=== PATIENT | female | born 1945 | race Caucasian/White ===

== ENCOUNTER 2023-06-28 08:12 | Day surgery (SDC) | payer MEDICARE, SELFPAY ==
[2023-06-28] VITALS (7 sets, daily range): BP systolic 98–117; BP diastolic 58–73; PULSE 60–84; RESP 16–18; TEMP 36.1–36.3; O2SAT 93–98; BMI 28.1
--- NOTE | 2023-06-28 | COLBX_PTH ---
PATIENT: ALESIA LUCAS LOC: EN U#:[id number] AGE/SX: 77/F ROOM: RE06/28/[address]: Dr. Marivel Nj MD : 1945 BED: DIS: 06/28/2023 SPEC #: [id number] RECD: 06/28/23 11:43 STATUS: MARY ELLEN REQ #: [id number] PRADIP: 06/28/23 00:[address]: Marivel Nj DEPT: SURGICAL PATHOLOGY RECD BY: Keshav Jones ENTERED: 06/28/23 13:27 SP TYPE: COLON BX OTHR DR: Dr. Dwayne Acosta, Tissues: Ascending colon Procedures: Surgery Specimen Level IV HEADER OPERATION: Colonoscopy with biopsy PRE-OP DIAGNOSIS: Blood in stool TISSUE SUBMITTED: Ascending colon lipoma biopsy MICROSCOPIC DIAGNOSIS Ascending colon lipoma, biopsy: Fragments of colonic mucosa and a detached fragment of mature adipose tissue. See comment. SJ:mark 06/29/2023 COMMENT The findings favor submucosal lipoma. Case has been reviewed in consultation with Dr. Mendieta who concurs with the above diagnosis. IDC:AM MICROSCOPIC DESCRIPTION Slides are reviewed. GROSS DESCRIPTION Received in fixative is one container labeled with the patient's name and designated ascending colon lipoma. The specimen consists of two irregular fragments of light villegas soft tissue that in aggregate measure 0.4 x 0.2 x 0.1 cm. The specimen is totally submitted in one cassette. / KIMBERLEY:mark 06/28/2023 TC:1 CPT: 82455
[2023-06-28] MEDS: Lactated Ringers 1,000 ML 15 ML IV (09:01)
--- NOTE | 2023-06-28 09:02 | HP.PCM_ITS ---
History and Physical Date of Admission: 06/28/23 Date of Service: 06/20/23 MR#: [id number] Acct: [id number] Name: ALESIA LUCAS Rep #: [id number] : 1945 Provider: Dr. Marivel Nj MD Age/Sex: 77/F Location: [facility] Status: Signed Intake Vital Signs 06/20/2313:17 Height 5 ft 5.5 in Weight: 171 lb 6 oz BMI 28.0 BP 114/71 Blood Pressure Location Rt brachial Position Sitting Respiration 17 Pulse 84 Pulse Source Monitor Temp 96.9 F L Temp Source Temporal Pulse Oximetry (%) 93 Oxygen Delivery Method room air Intake Visit Reasons: BLOOD IN STOOL Chief Complaint: blood in stool Allergies No Known Allergies Allergy (Unverified 06/20/23 13:19) Medications aspirin 81 mg tablet,delayed release 81 mg PO DAILY 06/20/23 [History Confirmed 06/20/23] atorvastatin 20 mg tablet 20 mg PO DAILY 06/20/23 [History Confirmed 06/20/23] calcium carb,cit ER 600 mg-vit D3 12.5 mcg (500 unit) tablet,ext.rel tab PO 06/20/23 [History Confirmed 06/20/23] mwnlcauf-uohk-rbzo 8 mg-folic 400 mcg-K 50 mcg-lutein 300 mcg tablet (Centrum Silver Women) 1 tab PO DAILY 06/20/23 [History Confirmed 06/20/23] omeprazole 20 mg capsule,delayed release 20 mg PO DAILY 06/20/23 [History Confirmed 06/20/23] sotalol 80 mg tablet 80 mg PO BID 06/20/23 [History Confirmed 06/20/23] PFSH Family History (Updated 06/20/23 @ 13:17 by Florina South) Sister Breast cancerMother Heart diseaseBrother Cancer lungFather Cancer lungDaughter Cancer stomach Social History (Updated 06/20/23 @ 13:17 by Florina South) Smoking Status: Former smoker substance use type: does not use HPI HPI HPI: Patient is a 77 y/o F I am seeing in conjunction with Dr. Nj. Patient presents with a 2 week history of bright red rectal bleeding and new onset of constipation. Patient states her last colonoscopy was on 01/22/[address] Molina. Findings included non-bleeding hemorrhoids and diverticulosis of the entire coon. Repeat colonoscopy in 10 years was recommended. Patient notes she is on a daily 81 mg aspirin. She denies family history of colon cancer. She notes 2 sisters with a history of diverticulitis and 1 brother with an ostomy secondary to a bowel obstruction. Patient notes she recently completed a Cologuard test which returned as negative. She was started on Miralax by her PCP to assist with constipation. Patient denies previous myocardial infarction, stroke, blood clots . 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 She denies previous complications or side effects from anesthesia. ROS General General: No weight change, appetite, fatigue, colon cancer, breast cancer or weakness HEENT HEENT: No difficulty swallowing, eye injury, eye surgery, swollen glands or hoarseness Endo Endocrine: No thyroid disease, diabetes mellitus, thyroid cancer, Hair loss, heat intolerance or cold intolerance Skin Skin: No rash or changing moles Musc Musculoskeletal: No back problems, arthritis, rheumatoid arthritis, gout or joint pain Cardio Cardiovascular: Yes murmur, heart disease, atrial fibrillation and high blood pressure; No pacemaker, heart attack, heart stent, palpitations, shortness of breat with exertion or chest pain Psych Psychiatric: No depression, anxiety or hearing voices Resp Respiratory: No shortness of breath, No sleep apnea, No cough, No COPD, No asthma, No emphysema and No wheezing Gastro Gastrointestinal: No abdominal pain, No nausea or vomiting, No diarrhea, No constipation, Yes blood in stool, Yes acid reflux, No hemorrhoids, No ulcers, No gallbladder problem and No black,tarry stools Ej Hematologic: No blood thinners, No blood disorders, No bleeding, No anemia and No blood clots Neuro Neurologic: No system reviewed and no additional complaints, except as documented, No as per HPI, No abnormal gait, No abnormal hearing, No abnormal movements, No abnormal speech, No behavioral changes, No burning sensations, No confusion, No convulsions, No disequilibrium, No dizziness, No localized weakness, No frequent falls, No headache(s), No lack of coordination, No loss of vision, No memory loss, No numbness, No other visual disturbances, No radicular pain, No restless legs, No sensory deficit, No syncope, No tingling, No tremor(s), No weakness and No other Exam Const General: cooperative, healthy appearing, comfortable and no acute distress [facility] Head: normal to inspection Eyes General: appearance normal, both eyes and all related structures Neck Neck: normal visual inspection Neck mass: No Resp Effort & Inspection: normal respiratory effort Auscultation: clear to auscultation bilaterally Cardio Rate: regular rate Rhythm: regular rhythm GI Inspection: normal to inspection Palpation: soft and nontender Auscultation: normal bowel sounds Rectal Exam: deferred Musc Cervical Spine: normal cervical lordosis Skin General: no rashes or lesions noted Neuro General: no focal motor deficits and CN's II-XI intact bilaterally Extrem General: normal to inspection Psych Appearance: grossly normal Affect: normal affect Assessment and Plan Assessment and Plan (1) Blood in stool: Status: Acute Plan: I have evaluated this patient in conjunction with Dr. Nj. Dr. Akhtar was called out to an emergency surgery. Dr. Nj will plan to perform a colonoscopy with possible biopsies. Procedure details, risks and benefits have been explained. Patient will hold her aspirin 5 days prior to the procedure. Patient has had the opportunity to ask and have questions answered. Patient verbally understands and agrees with the plan. Order has been filed. Coding Level of Care Code Off vis,new,level 3 Diagnoses Blood in stool K92.1 06/26/23 1138 <Electronically signed by Stormy WARE PA-C> Date Stormy WARE PA-C
--- NOTE | 2023-06-28 10:27 | OP.CCLET_ITS ---
06/28/2023 Dwayne Acosta Do Re : Colonoscopy procedure for Ángela Moore Dear Karla This procedure was performed on Wednesday, June 28, 2023. My impressions and recommendations are as follows: Impressions : - Small lipoma in the ascending colon. Biopsied. - Diverticulosis in the sigmoid colon, in the descending colon and in the transverse colon. - The examination was otherwise normal on direct and retroflexion views. Recommendations : - Discharge patient to home. - Resume previous diet. - Continue present medications. - Await pathology results. - Repeat colonoscopy not needed due to age. My findings are described in the full procedure note, which is enclosed. If I can be of further assistance, please feel free to contact me at Doctor phone number(s): , Work: . Sincerely, MD Marivel Soliman MD 06/28/2023 10:27:11 AM This report has been signed electronically.
--- NOTE | 2023-06-28 10:27 | OP.COLON_ITS ---
Patient Name: Ángela Moore Procedure Date: 06/28/2023 9:51 AM Date of : 1945 Age: 77 Procedure: Colonoscopy Indications: Screening for colorectal malignant neoplasm Providers: Marivel Nj MD Referring MD: Dwayne Acosta Do Medicines: Monitored Anesthesia Care Patient Profile: This is a 77 year old female. Last Colonoscopy: 10 years ago. Complications: No immediate complications. Procedure: Pre-Anesthesia Assessment: - Prior to the procedure, a History and Physical was performed, and patient medications and allergies were reviewed. The patient's tolerance of previous anesthesia was also reviewed. The risks and benefits of the procedure and the sedation options and risks were discussed with the patient. All questions were answered, and informed consent was obtained. Prior Anticoagulants: The patient has taken no anticoagulant or antiplatelet agents except for aspirin. ASA Grade Assessment: Per anesthesia. After reviewing the risks and benefits, the patient was deemed in satisfactory condition to undergo the procedure. After I obtained informed consent, the scope was passed under direct vision. Throughout the procedure, the patient's blood pressure, pulse, and oxygen saturations were monitored continuously. The Colonoscope was introduced through the anus and advanced to the cecum, identified by the appendiceal orifice, ileocecal valve and palpation. The colonoscopy was performed without difficulty. The patient tolerated the procedure well. The quality of the bowel preparation was good. Scope In: 10:00:07 AM Scope Withdrawal Time 0 hours 8 minutes 16 seconds Scope Out: 10:16:27 AM Total Procedure Duration Time 0 hours 16 minutes 20 seconds Findings: The perianal and digital rectal examinations were normal. There was a small lipoma, in the ascending colon. Biopsies were taken with a cold forceps for histology. Multiple small-mouthed diverticula were found in the sigmoid colon, descending colon and transverse colon. The exam was otherwise without abnormality on direct and retroflexion views. Impression: - Small lipoma in the ascending colon. Biopsied. - Diverticulosis in the sigmoid colon, in the descending colon and in the transverse colon. - The examination was otherwise normal on direct and retroflexion views. Recommendation: - Discharge patient to home. - Resume previous diet. - Continue present medications. - Await pathology results. - Repeat colonoscopy not needed due to age. Procedure Code(s): --- Professional --- 57337, PT, Colonoscopy, flexible; with biopsy, single or multiple Diagnosis Code(s): --- Professional --- Z12.11, Encounter for screening for malignant neoplasm of colon D17.5, Benign lipomatous neoplasm of intra-abdominal organs K57.30, Diverticulosis of large intestine without perforation or abscess without bleeding CPT copyright 2021 [employer]. All rights reserved. The codes documented in this report are preliminary and upon hims coder review may be revised to meet current compliance requirements. MD Marivel Soliman MD 06/28/2023 10:27:11 AM This report has been signed electronically. Number of Addenda: 0 Note Initiated On: 06/28/2023 9:51 AM
== END 2023-06-28 11:14 | disposition home or self-care (01) ==
LOC: EN 08:13 → AC 08:15
PROVIDERS: PCP Student in an Organized Health Care Education/Training Program; Referring Provider Student in an Organized Health Care Education/Training Program; Visit Provider Surgery
PROC: 0DJD8ZZ Inspection of Lower Intestinal Tract, Via Natural or Artificial Opening Endoscopic (ICD-10-PCS; CPT 45378; principal; 2023-06-28 10:10)
DX: Z12.11 Encounter for screening for malignant neoplasm of colon (principal); I48.91 Unspecified atrial fibrillation; K92.1 Melena; Z87.891 Personal history of nicotine dependence; K57.30 Diverticulosis of large intestine without perforation or abscess without bleeding; Z79.82 Long term (current) use of aspirin; Z79.899 Other long term (current) drug therapy; D17.5 Benign lipomatous neoplasm of intra-abdominal organs; I10 Essential (primary) hypertension
CPT/HCPCS: 45380; 88305; J7120; J2405

== ENCOUNTER → 2024-10-29 | Outpatient (CLI) | payer MEDICARE, SELFPAY ==
[2024-10-29 08:36] LABS: Bacteria 0 SEEN /hpf (None Seen); Mucous, Urine 0 SEEN /hpf (<or=2+); Red Blood Cells-Urine 0 SEEN /hpf (0-5)
[2024-10-29 12:14] LABS: Absolute Lymphocyte Count 2.47 X10^3/uL (0.83-4.51); Absolute Neutrophil Count 3.8 X10^3/uL (2.0-7.7); Basophil# 0.05 X10^3/uL; Basophil% 0.7 % (0-1); Eosinophils% 4.1 % (0-5); Hematocrit 43.9 % (37-47); Lymphocyte # 2.47 X10^3/ul (0.83-4.51); Lymphocyte % 34.1 % (19-41); Mean Corp Hgb Conc 31.9 g/dL (32-36); Mean Corpuscular Hgb 29.1 pg (27.0-32.0); Mean Corpuscular Volume 91.3 fL (81-99); Mean Platelet Vol. 11.1 fl (6.2-12.0); Monocyte# 0.58 X10^3/uL; NRBC Flagged by Analyzer 0 % (0-5); Neutrophil # 3.81 X10^3/uL (2.7-7.7); Neutrophil % 52.7 % (47-70); Platelet Count 237 K/mm3 (150-450); RBC Distribution Width CV 12.5 % (11.6-14.6); RBC Distribution Width SD 41.4 fl (35.1-43.9); Red Blood Count 4.81 M/mm3 (4.2-5.4); White Blood Count 7.2 K/mm3 (4.4-11.0)
[2024-10-29 12:40] LABS: Color, Urine Yellow (Yellow); Glucose, Dipstick Normal (Normal); Ketone-Dipstick Negative (Negative); Leukocyte Esterase-Dipstick 25 /ul (Negative); Nitrite-Dipstick Negative (Negative); Occult Blood-Urine Negative /ul (Negative); Protein-Dipstick Negative (Negative); Urine Bilirubin Dipstick Negative (Negative); Urine Clarity Clear (Clear); Urine Urobilinogen Normal (Normal)
[2024-10-29 12:47] LABS: Squamous Epithelial Cells - UA 0-5 SEEN /hpf (5-10); White Blood Cells 0-5 SEEN /hpf (0-5)
[2024-10-29 12:58] LABS: ALB/GLOB Ratio 0.9 RATIO (0.9-2.4); AST(SGOT) 19 U/L (15-37); Alanine Aminotransfer ALT/SGPT 30 U/L (13-56); Albumin, Serum 3.7 g/dL (3.2-5.0); Alkaline Phosphatase 91 U/L (45-117); Anion Gap 1 (5-15); BUN 14 mg/dL (7-18); BUN/Creat Ratio 20.3 RATIO (10-20); Calcium,Total 9.4 mg/dL (8.5-10.1); Chloride 102 mmol/L (98-107); Cholesterol 184 mg/dL (200); Creatinine, Serum 0.69 mg/dL (0.55-1.02); EST Glomerular Filtration Rate 88 mL/min (>60); Est Glom Filt Rate - Afr Amer 106 mL/min (>60); Glucose 99 mg/dL (74-106); High Density Lipoprotein 79 mg/dL; Potassium 4.5 mmol/L (3.5-5.1); Protein, Total 7.7 g/dL (6.4-8.2); Sodium Level 135 mmol/L (136-145); Triglycerides 106 mg/dL; Very Low Density Lipoprotein 21 mg/dL (5-40)
[2024-10-29 13:00] LABS: Vitamin D,25 Hydroxy 55.4 ng/mL
[2024-10-29 14:39] LABS: Hemoglobin A1c 5.6 % (3.8-5.6)
== END | disposition home or self-care (01) ==
LOC: BIMLAB 08:35
PROVIDERS: PCP Student in an Organized Health Care Education/Training Program; Referring Provider Internal Medicine; Visit Provider Internal Medicine
DX: I48.0 Paroxysmal atrial fibrillation (principal); I10 Essential (primary) hypertension; K21.9 Gastro-esophageal reflux disease without esophagitis; R73.03 Prediabetes; R35.0 Frequency of micturition; M85.80 Other specified disorders of bone density and structure, unspecified site

== ENCOUNTER 2024-12-02 14:22 | Emergency (ER) | payer MEDICARE, SELFPAY ==
[2024-12-02 14:22] VITALS: BP 142/100; PULSE 94; RESP 16; TEMP 35.9; O2SAT 99; BMI 27.0
--- NOTE | 2024-12-02 16:31 | ED.VIS.LOWEX ---
HPI <JEANIE Lora - Last Filed: 12/02/24 21:39> History of Present Illness Chief Complaint: Lower Extremity Injury Narrative Narrative: Patient presenting today with pain behind her right knee with and tightness in her right calf that she has had over the past 3 days. She also reports pain to the medial aspect of her right calf. Pain is worse with ambulating. She has been try to keep her leg elevated which does somewhat help with her symptoms. She reports concerns for DVT. She denies any history of blood clots or recent surgery/travel/immobilization. She denies any chest pain or shortness of breath. [facility] <JEANIE Lora - Last Filed: 12/02/24 21:39> [facility] Medical History Vitamin D deficiency PVD (peripheral vascular disease) LVH (left ventricular hypertrophy) Anxiety Ectopic atrial tachycardia Osteopenia Prediabetes Acid reflux A-fib HTN (hypertension) Heart murmur Depression Arthritis High cholesterol History of GI bleed Gastric reflux History of edema History of irregular heartbeat Home Medications ?Medication ?Instructions ?Recorded ?Last Taken ?Type calcium ER 600 mg (as carb,cit)-D3 1 tab PO BID 06/20/23 Unknown History 12.5 mcg (500 unit) tablet, ext.rel ohuzsqyr-zyab-fawl 8 mg-folic 400 1 tab PO DAILY 06/20/23 Unknown History mcg-K 50 mcg-lutein 300 mcg tablet (Centrum Silver Women) sotalol 80 mg tablet 80 mg PO BID 06/20/23 06/28/23 History atorvastatin 20 mg tablet 20 mg PO DAILY #90 tabs 10/29/24 Unknown Rx omeprazole 20 mg capsule,delayed 20 mg PO BID #180 caps 10/29/24 Unknown Rx release lisinopril 10 mg tablet 10 mg PO QDAY #90 tabs 11/27/24 Unknown Rx apixaban 5 mg tablet (Eliquis) 5 mg PO BID #74 tabs 12/02/24 Unknown Rx Allergy/AdvReac Type Severity Reaction Status Date / Time No Known Allergies Allergy Verified 11/27/24 13:36 Family History Sister Breast cancer Colon cancer Mother Heart disease Brother Cancer lung Father Cancer lung Daughter Cancer stomach Son PFO (patent foramen ovale) Surgical History Status post ablation of incompetent vein using laser Hx of dilation and curettage Hx of hysterectomy Hx of tubal ligation Social History household members: none housing: house current occupational status: retired current occupation: [employer] Smoking Status: Former smoker quit date: 10/16/69 Electronic Cigarette Use: not used alcohol intake: never substance use type: does not use caffeine: Yes Type: coffee Number of servings: 2 what type of physical activity do you participate in: none seatbelt use: always do you feel safe at home: Yes ROS <JEANIE Lora - Last Filed: 12/02/24 21:39> ROS ED Constitutional Constitutional ED: Denies chills or fever(s) Cardiovascular Cardiovascular: Denies chest pain Respiratory/Chest Respiratory/Chest: Denies dyspnea Musculoskeletal Musculoskeletal: Reports myalgias; Denies arthralgias Integumentary Denies rash Neurologic Neurologic: Denies paresthesias EXAM <JEANIE Lora - Last Filed: 12/02/24 21:39> Physical Exam Const Vital Signs: 12/02/24 14:22 12/02/24 18:22 Temperature 96.6 F L Temperature Source Temporal Pulse Rate 94 77 Respiratory Rate 16 17 Blood Pressure 142/100 H Blood Pressure Mean 114 Pulse Ox 99 Oxygen Delivery Method Room Air Positive well nourished, well developed and no apparent distress General Appearance ED: well developed HEENT Reports normocephalic and head/scalp atraumatic Mouth ED: Yes moist mucous membranes normal Eyes PERRL and EOMs intact bilaterally Neck full ROM and supple Chest Wall inspection of chest normal Resp normal respiratory effort and clear to auscultation bilaterally Cardio regular rate and regular rhythm Back/Spine normal ROM and normal to inspection Extremity normal to inspection and full ROM Extremity Narrative: pain to palpation to the medial aspect of the right calf, no leg swelling, no palpable cord, no warmth or erythema, no signs of infection. Right DP pulse 2+, good cap refill, sensation intact. Neuro oriented x3, CN's II-XII intact bilaterally, moves all extremities, no focal motor deficits and no sensory deficits noted Sensorium / Orientation: awake and alert Psych mental status grossly normal and thought process normal Skin no rashes or lesions noted and no wounds <Dr. Tata Rachel, - Last Filed: 12/03/24 12:38> Physical Exam Const Vital Signs: 12/02/24 14:22 12/02/24 18:22 Temperature 96.6 F L Temperature Source Temporal Pulse Rate 94 77 Respiratory Rate 16 17 Blood Pressure 142/100 H Blood Pressure Mean 114 Pulse Ox 99 Oxygen Delivery Method Room Air [facility] <JEANIE Lora - Last Filed: 12/02/24 21:39> [facility] Narrative Medical decision making narrative: Patient presenting today with tightness to her right calf and pain along the medial aspect of her calf and behind her right knee that she has had over the past 3 days. She reports concerns for DVT. She denies any history of DVT. She denies any injury to the area. She is able to ambulate. She is neurovascularly intact, no ischemic limb. Venous duplex ultrasound obtained of the right lower extremity that shows a DVT in the right popliteal and posterior tibial veins. She did just have labs obtained 1 month ago, her kidney function was normal at that time, she has no history of CKD. She is not complaining of any chest pain or shortness of breath, her vitals are unremarkable. We will place her on a course of Eliquis with first dose here. She will be given a referral for Dr. Carrington. Recommended she follow-up with her PCP as well. Return instructions were discussed and patient discharged home in stable condition. Radiography Diagnostic Testing: Clinical Impression(s) from Imaging Studies Venous Duplex 12/02/24 16:34 IMPRESSION: Deep vein thrombosis in the right popliteal vein and posterior tibial veins. Reading Location: [facility] <Dr. Tata Rachel, - Last Filed: 12/03/24 12:38> [facility] Narrative Medical decision making narrative: Patient presenting today with tightness to her right calf and pain along the medial aspect of her calf and behind her right knee that she has had over the past 3 days. She reports concerns for DVT. She denies any history of DVT. She denies any injury to the area. She is able to ambulate. She is neurovascularly intact, no ischemic limb. Venous duplex ultrasound obtained of the right lower extremity that shows a DVT in the right popliteal and posterior tibial veins. She did just have labs obtained 1 month ago, her kidney function was normal at that time, she has no history of CKD. She is not complaining of any chest pain or shortness of breath, her vitals are unremarkable. We will place her on a course of Eliquis with first dose here. She will be given a referral for Dr. Carrington. Recommended she follow-up with her PCP as well. Return instructions were discussed and patient discharged home in stable condition. I have personally performed a face to face assessment of the patient and have reviewed the ARTEMIO Note. I performed a substantive portion of the visit including all aspects of the following. My curiel findings include: History is patient is a 79-year-old female presenting with discomfort to her right calf. She notes she did have COVID a couple weeks ago and has been laying more frequently and less active. Denies any swelling of her legs. Denies any history of DVT or PE. Does have a history of peripheral vascular disease and did have a prior laser vein procedure with Dr. Robbins. She notes that this was years ago however. Denies any associate shortness of breath or difficulty breathing. Denies any chest pain. On exam she is not having appreciate edema or erythema of the lower extremity. Normal range of motion. 2+ DP pulse of the right foot. No palpable cords. Venous duplex obtained which does show popliteal and posterior tibial DVT. Patient will be started on anticoagulation. We will start her on Eliquis and first dose was given in the emergency room. She is given a coupon card for Eliquis. Discussed risk and benefits of anticoagulation and to watch for signs of bleeding. But it is okay for her to take Tylenol as needed. Discussed that if she has head injury she should return to the emergency room. Instructed to watch for any signs of GI bleeding. Discussed avoiding NSAIDs. she denies any history of GI bleeding or anemia. Patient had lab work 1 month ago with normal largely normal CBC and BMP. She is pretty much been in her normal state of health but is offered repeat labs at this time but declines. I do feel comfortable going off of her labs from 1 month ago. Is given referral for vascular surgery for further management of this. Given close return precautions. Discharged home in stable condition. Other additions or changes: [None] Radiography Diagnostic Testing: Clinical Impression(s) from Imaging Studies Venous Duplex 12/02/24 16:34 IMPRESSION: Deep vein thrombosis in the right popliteal vein and posterior tibial veins. Reading Location: [facility] Discharge Plan Triage Chief Complaint: Lower Extremity Injury ED Midlevel Provider: Radha Malik ED Provider: Tata Rachel Dx/Rx/DC Orders Clinical Impression: DVT (deep venous thrombosis) Instructions: DVT Dc Prescriptions: New Eliquis 5 mg tablet 5 mg PO BID Qty: 74 0RF Rx Instructions: 10 mg twice a day for the first week. Then 5 mg twice a day. No Action calcium carb, citrate-vit D3 600 mg-12.5 mcg (500 unit) tablet extended release 1 tab PO BID Centrum Silver Women 8 mg iron-400 mcg-50 mcg tablet 1 tab PO DAILY sotalol 80 mg tablet 80 mg PO BID atorvastatin 20 mg tablet 20 mg PO DAILY Qty: 90 1RF omeprazole 20 mg capsule,delayed release(DR/EC) 20 mg PO BID Qty: 180 1RF lisinopril 10 mg tablet 10 mg PO QDAY Qty: 90 3RF Primary Care Provider: Manjula Vines Referrals: Manjula Vines MD [Primary Care Provider] - 5-7 Days Kane Carrington MD [Med Staff - Active Staff] - 1 Week Activity Restrictions/Additional Instructions: Follow-up with your PCP and vascular surgery. Return for any worsening symptoms. Print Language: Thai Disposition Disposition: Home, Self Care Discharge Date/Time: 12/02/24 18:42
--- NOTE | 2024-12-02 16:34 | US_ITS ---
EXAM: VENOUS DUPLEX IMAG/LIMITED/UNI CLINICAL HISTORY: Right lower extremity pain COMPARISON: None. TECHNIQUE: Grayscale color flow and doppler analysis of the right lower extremity. FINDINGS: There is intraluminal echogenicity and small amount of blood flow to suggest the presence of a deep venous thrombosis in the popliteal vein and posterior tibial vein. Other veins demonstrate no filling defect.. Appropriate respiratory variation, augmentation and venous compression is noted. US/Venous Duplex Imag/Limited/Uni IMPRESSION: Deep vein thrombosis in the right popliteal vein and posterior tibial veins. Reading Location: [facility]
[2024-12-02 18:22] VITALS: PULSE 77; RESP 17
[2024-12-02] MEDS: APIXABAN 5 MG TABLET 10 MG PO (18:40)
== END 2024-12-02 18:42 | disposition home or self-care (01) ==
PROVIDERS: Emergency Provider Emergency Medicine; PCP Internal Medicine; Visit Provider Emergency Medicine
DX: I82.431 Acute embolism and thrombosis of right popliteal vein (principal); I82.441 Acute embolism and thrombosis of right tibial vein; E78.00 Pure hypercholesterolemia, unspecified; I10 Essential (primary) hypertension; Z87.891 Personal history of nicotine dependence; K21.9 Gastro-esophageal reflux disease without esophagitis
CPT/HCPCS: 93971; 99282

== ENCOUNTER → 2025-01-09 | Outpatient (CLI) | payer MEDICARE, SELFPAY ==
--- NOTE | 2025-01-09 10:31 | BD_ITS ---
EXAM: DEXA BONE DENSITY STUDY 01/09/2025 REASON FOR EXAM: SCREENING F,79 y/o patient is postmenopausal. TECHNIQUE: DXA scan of the lumbar spine and total body less head, using make and model. REFERENCE LINKS: ISCD Pediatric Positions ISCD Adult Positions COMPARISON: None. FINDINGS: BMD and Z-SCORES DEXA examination of lumbar spine show the bone mineral density measured 0.907 grams/centimeter squared. T-score measures -1.3 and Z-score measures 1.3. DEXA examination of the left femoral neck shows a bone mineral density measures 0.598 grams/centimeter squared. T-score measures -2.3 and Z-score measures -0.1. Total bone mineral density of the left hip measures 0.737 grams/centimeter squared. T-score measures -1.7 and Z-score measures 0.2. DEXA examination of the right femoral neck shows a bone mineral density measures 0 point 602 grams/centimeter squared. T-score measures -2.2 and Z-score measures 0. DEXA examination of the total right hip shows a bone mineral density measured 0.732 grams/centimeter squared. T-score measures -1.7 and Z-score measures 0.2. Fracture Risk Calculation: FRAX (10-year Fracture Risk) Score: 10 year fracture risk index for major osteoporotic fracture is 24% and for hip fracture is 8%. The patient meet the pharmacological treatment recommendations for prevention of osteoporosis BD/Dexa Bone Density Study IMPRESSION: Patient demonstrates osteopenia of the lumbar spine and both hips. Recommend follow-up, if clinically warranted. Reading Location: [id number]
== END | disposition home or self-care (01) ==
LOC: OPBD 10:29
PROVIDERS: PCP Internal Medicine; Referring Provider Internal Medicine; Visit Provider Internal Medicine
DX: Z78.0 Asymptomatic menopausal state (principal); M85.851 Other specified disorders of bone density and structure, right thigh; M85.852 Other specified disorders of bone density and structure, left thigh; M85.88 Other specified disorders of bone density and structure, other site
CPT/HCPCS: 77080

== ENCOUNTER → 2025-03-20 | Outpatient (CLI) | payer MEDICARE, SELFPAY ==
[2025-03-20 09:51] LABS: Erythrocyte Sedimentation Rate 6 mm/hr (0-30)
== END | disposition home or self-care (01) ==
LOC: LAB 09:14
PROVIDERS: PCP Internal Medicine; Referring Provider Physician Assistant; Visit Provider Physician Assistant
DX: I82.409 Acute embolism and thrombosis of unspecified deep veins of unspecified lower extremity (principal); I73.9 Peripheral vascular disease, unspecified
CPT/HCPCS: 36415; 81240; 81241; 85300; 85301; 85303; 85305; 85306; 85652; 86038; 86146; 86147; 86160; 86162; 86225